=== PATIENT | female | born 2000 | race African-American/Black ===

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

== ENCOUNTER 2020-02-15 19:10 | Emergency (ER) | payer SELFPAY ==
[~2020-02-15] VITALS: Ht 170.2 cm; Wt 70.0 kg
[~2020-02-15 19:10] MED LIST changes: +FAMO-63 PO
[2020-02-15 19:48] LABS: BILIRUBIN,URINE NEGATIVE (NEG); CLARITY,URINE CLOUDY; COLOR,URINE AMBER; NITRITE,URINE POSITIVE (NEG); PH,URINE 6.5 (<5.0-8.0); PROTEIN,URINE 30 mg/dL (NEG-TRACE)
[2020-02-15 19:59] LABS: BACTERIA,URINE MODERATE /HPF (0-FEW); RBC,URINE 0 /HPF (0-2); SQUAMOUS EPITHELIAL CELL,UR MANY /LPF; WBC,URINE >40 /HPF (0-4)
[2020-02-15] MEDS ORDERED: AZITHROMYCIN 250 MG TABLET. PO ONE (20:00)
[2020-02-15] MEDS ORDERED: cefTRIAXone IM 250 MG VIAL IM ONE (20:00)
--- NOTE | 2020-02-15 20:38 | RAD ---
Transvaginal pelvic ultrasound 02/15/2020. Reason for exam: Cervical pain. Vaginal discharge. FINDINGS: Uterus is normal in size and shape, measuring 7.0 x 4.1 x 2.3 cm. Endometrial thickness is normal at 6 mm. No fibroid is seen. Both ovaries are demonstrated and are normal in size. They have internal blood flow. There is a small amount of free fluid adjacent to the right ovary. Note is made of prominent venous structures, especially on the right. IMPRESSION: No identified cause for discharge. There is a small amount of free fluid, which may be physiologic. There are prominent veins in the pelvis. These are nonspecific, but can be seen with pelvic congestion syndrome. Electronically signed by: Cm Bonilla Jr., MD (02/15/2020 8:36 PM) [facility]
[2020-02-15] MEDS ORDERED: METR-34 PO (20:47)
--- NOTE | 2020-02-15 20:48 | PHYS DOC ---
Past Medical History Past Medical History: Other Additional Past Medical Histor: Lupus, Blood clot R lung, R leg diagnosed 06/12 Past Surgical History: No Surgical History Smoking Status: Current Every Day Smoker Alcohol Use: Occasionally General Adult EDM: Chief Complaint: PELVIC PAIN HPI: HPI: Patient is a 20 year old AA female who presents to the emergency department with complaints of abnormal vaginal discharge and pelvic pain for the last week. She denies any dysuria, hematuria, or difficulty voiding. Patient denies any recent unprotected intercourse. She denies any abnormal vaginal bleeding, fever, cough, nausea, vomiting, or diarrhea. She currently rates her pain a 5 out of 10 on the pain scale, she denies any radiation of the pain, she denies any alleviating or exacerbating factors. Review of Systems: Review of Systems: Constitutional: Denies fever or chills. [] GI: Denies abdominal pain, nausea, vomiting, or diarrhea. [] : See HPI Integument: Denies rash. [] Neurologic: Denies headache Psychiatric: Denies depression or anxiety. [] Heart Score: Risk Factors: Risk Factors: DM, Current or recent (<one month) smoker, HTN, HLP, family history of CAD, obesity. Risk Scores: Score 0 - 3: 2.5% MACE over next 6 weeks - Discharge Home Score 4 - 6: 20.3% MACE over next 6 weeks - Admit for Clinical Observation Score 7 - 10: 72.7% MACE over next 6 weeks - Early Invasive Strategies Current Medications: Current Medications Medications (Trade) Dose Ordered Sig/[facility] Start Time Stop Time Status Last Admin Dose Admin Azithromycin (Zithromax) 1,000 mg 1X ONCE 02/15/20 20:00 02/15/20 20:22 DC Ceftriaxone Sodium (Rocephin Im) 250 mg 1X ONCE 02/15/20 20:00 02/15/20 20:22 DC Allergies: Allergies: Allergies Coded Allergies Type Severity Reaction Last Updated Verified No Known Drug Allergies 11/02/19 No Physical Exam: PE: Constitutional: Well developed, well nourished, no acute distress, non-toxic appearance. HENT: Normocephalic, atraumatic, bilateral external ears normal, nose normal. Eyes: PERRLA, EOMI, conjunctiva normal, no discharge. Neck: Normal range of motion, no stridor. Cardiovascular: Heart rate regular rhythm Lungs & Thorax: Respirations even and unlabored, no retractions, no respiratory distress Pelvic Exam: Tree Puller present Yamileth RN Abdomen: Nontender, soft External Genitalia: Normal Skin Speculum: Normal vaginal mucosa, purulent cervical discharge Bimanual: No adnexal masses or tenderness, CMT Skin: Warm, dry, no erythema, no rash. Extremities: No cyanosis, ROM intact, no edema. Neurologic: Alert and oriented X 3, no focal deficits noted. Psychologic: Affect normal, judgement normal, mood normal. Current Patient Data: Labs: Laboratory Tests Test 02/15/20 19:26 02/15/20 19:40 POC Urine HCG, Qualitative Hcg negative (Negative) Urine Collection Type Unknown Urine Color Katerina Urine Clarity Cloudy Urine pH 6.5 (<5.0-8.0) Urine Specific [place] >=1.030 (1.000-1.030) Urine Protein 30 mg/dL (NEG-TRACE) Urine Glucose (UA) Negative mg/dL (NEG) Urine Ketones (Stick) Negative mg/dL (NEG) Urine Blood Negative (NEG) Urine Nitrite Positive (NEG) Urine Bilirubin Negative (NEG) Urine Urobilinogen Dipstick 1.0 mg/dL (0.2 mg/dL) Urine Leukocyte Esterase Moderate (NEG) Urine RBC 0 /HPF (0-2) Urine WBC >40 /HPF (0-4) Urine Squamous Epithelial Cells Many /LPF Urine Bacteria Moderate /HPF (0-FEW) Urine Mucus Mod /LPF Microbiology 02/15/20 Wet Prep - Final, Complete Vital Signs: Vital Signs Date Time Temp Pulse Resp B/P (MAP) Pulse Ox O2 Delivery O2 Flow Rate FiO2 02/15/20 19:43 98.6 100 16 116/58 (77) 99 Room Air 98.6 EKG: EKG: [] Radiology/Procedures: Radiology/Procedures: PROCEDURE: TRANSVAGINAL Transvaginal pelvic ultrasound 02/15/2020. Reason for exam: Cervical pain. Vaginal discharge. FINDINGS: Uterus is normal in size and shape, measuring 7.0 x 4.1 x 2.3 cm. Endometrial thickness is normal at 6 mm. No fibroid is seen. Both ovaries are demonstrated and are normal in size. They have internal blood flow. There is a small amount of free fluid adjacent to the right ovary. Note is made of prominent venous structures, especially on the right. IMPRESSION: No identified cause for discharge. There is a small amount of free fluid, which may be physiologic. There are prominent veins in the pelvis. These are nonspecific, but can be seen with pelvic congestion syndrome. Electronically signed by: Cm Bonilla Jr., MD (02/15/2020 8:36 PM) [facility] [] Course & Med Decision Making: Course & Med Decision Making Pertinent Labs and Imaging studies reviewed. (See chart for details) 20-year-old female presents to the emergency department for evaluation of pelvic pain and irregular vaginal discharge. Work-up included a pelvic exam and pelvic ultrasound. Ultrasound revealed prominent veins in the pelvis most likely due to pelvic congestion syndrome, no identified cause for the discharge, a small amount of free fluid which may be physiologic. Wet mount was concerning for bacterial vaginosis. Patient was given a prescription for Flagyl 500 mg p.o. twice daily x7 days. Pelvic exam was concerning for sexually transmitted infection. Patient was treated prophylactically with 250 mg of IM Rocephin, and 1 g of PO Zithromax. Patient was instructed to avoid having intercourse until the results of gonorrhea and chlamydia testing are available, patient was notified that these results would not be available for 48 hours. If one or both of these tests is positive, patient needs to refrain from intercourse for approximately 1 week following the treatment of any current partners. Patient verbalized an understanding of home care, medications, follow-up, and return to ED instructions and was in agreement with the plan of care. [] Dragon Disclaimer: Dragon Disclaimer: This electronic medical record was generated, in whole or in part, using a voice recognition dictation system. Departure Departure Impression: Primary Impression: Bacterial vaginosis Additional Impressions: Contact with and (suspected) exposure to infections with a predominantly sexual mode of transmission Pelvic pain Disposition: 01 HOME, SELF-CARE Condition: STABLE Referrals: NO PCP (PCP) Patient Instructions: Bacterial Vaginosis, [id number], Pelvic Pain, Female, Twij-[id number], Sexually Transmitted Disease, [id number] Additional Instructions: Fill the prescription and use as directed. Recommend that you go to your local health department for comprehensive sexually transmitted disease testing. You have been treated for a suspected gonorrhea and chlamydia. Avoid having intercourse until the results of gonorrhea and chlamydia testing are available, these results will not be available for 48 hours. If one or both of these tests is positive, you need to refrain from intercourse for approximately 1 week following the treatment of any current partners. Follow-up with your primary care doctor if symptoms persist, return to ER symptoms worsen. Scripts Metronidazole (METRONIDAZOLE) 500 Mg Tablet 1 TAB PO BID for 7 Days, #14 TAB 0 Refills Prov: BONNIE HAYWOOD APRN 02/15/20 Justicifation of Admission Dx: Justifications for Admission: Justification of Admission Dx: N/A BONNIE HAYWOOD APRN Feb 15, 2020 20:48
[2020-02-15 20:54] VITALS: BP 106/55
[2020-02-17 21:08] LABS: GC PROBE Negative (Negative)
== END 2020-02-15 21:02 | disposition home or self-care (01) ==
LOC: ER 19:10
DX: N76.0 Acute vaginitis (principal); B96.89 Other specified bacterial agents as the cause of diseases classified elsewhere; R10.2 Pelvic and perineal pain; Z20.2 Contact with and (suspected) exposure to infections with a predominantly sexual mode of transmission; F17.200 Nicotine dependence, unspecified, uncomplicated
CPT/HCPCS: 76830; 81001; 81025; 87086; 87491; 87591; 96372; 99284; J0696; Q0111

== ENCOUNTER 2020-04-07 23:18 | Emergency (ER) | payer SELFPAY ==
[~2020-04-07] VITALS: Ht 167.6 cm; Wt 62.7 kg
[2020-04-07] MEDS ORDERED: IV NORMAL SALINE 1000ML BAG 1,000 ML IV ONE (23:30)
[2020-04-07] MEDS ORDERED: ONDANSETRON PF 4 MG/2 ML VIAL. IVP ONE (23:30)
[2020-04-07] MEDS ORDERED: ACETAMINOPHEN 500 MG TABLET PO ONE (23:30)
--- NOTE | 2020-04-07 23:48 | PHYS DOC ---
Past Medical History Past Medical History: Other Additional Past Medical Histor: Lupus, Blood clot R lung, R leg diagnosed 06/12 Past Surgical History: No Surgical History Smoking Status: Current Every Day Smoker Alcohol Use: Occasionally General Adult EDM: Chief Complaint: weakness HPI: HPI: Patient is a 20 year old female who arrives via EMS with a chief complaint of weakness. Patient had a COVID-19 exposure 2 weeks ago and then for the last week is felt generalized weakness has had some diarrhea of myalgias and fatigue. Patient has some shortness of breath but denies any cough. Patient is nauseous but has not been vomiting. Patient has a history of pulmonary embolism and sporadically takes her anticoagulants. Review of Systems: Review of Systems: Constitutional: Denies fever or chills. [] Eyes: Denies change in visual acuity. [] HENT: Denies nasal congestion or sore throat. [] Respiratory: Denies cough but has had shortness of breath. [] Cardiovascular: Denies chest pain or edema. [] GI: Denies abdominal pain, but has had nausea and diarrhea : Has had intermittent dysuria Musculoskeletal: Denies back pain or joint pain. [] Complains of myalgias Integument: Denies rash. [] Neurologic: Denies headache, focal weakness or sensory changes. [] Endocrine: Denies polyuria or polydipsia. [] Lymphatic: Denies swollen glands. [] Psychiatric: Denies depression or anxiety. [] Heart Score: Risk Factors: Risk Factors: DM, Current or recent (<one month) smoker, HTN, HLP, family history of CAD, obesity. Risk Scores: Score 0 - 3: 2.5% MACE over next 6 weeks - Discharge Home Score 4 - 6: 20.3% MACE over next 6 weeks - Admit for Clinical Observation Score 7 - 10: 72.7% MACE over next 6 weeks - Early Invasive Strategies Current Medications: Current Medications Sodium Chloride 1,000 ml @ 1,000 mls/hr 1X ONCE IV Last administered on 04/07/20at 23:54; Start 04/07/20 at 23:30; Stop 04/08/20 at 00:29; Status DC Acetaminophen (Tylenol) 1,000 mg 1X ONCE PO Last administered on 04/07/20at 23:40; Start 04/07/20 at 23:30; Stop 04/07/20 at 23:31; Status DC Ondansetron HCl (Zofran) 4 mg 1X ONCE IVP Last administered on 04/07/20at 23:54; Start 04/07/20 at 23:30; Stop 04/07/20 at 23:31; Status DC Potassium Chloride (Klor-Con) 40 meq 1X ONCE PO Last administered on 04/08/20at 02:13; Start 04/08/20 at 01:00; Stop 04/08/20 at 01:01; Status DC Ceftriaxone Sodium (Rocephin) 1 gm 1X ONCE IVP Last administered on 04/08/20at 02:14; Start 04/08/20 at 01:00; Stop 04/08/20 at 01:01; Status DC Iohexol (Omnipaque 350 Mg/ml) 100 ml 1X ONCE IV Last administered on 04/08/20at 02:03; Start 04/08/20 at 01:45; Stop 04/08/20 at 01:46; Status DC Info (CONTRAST GIVEN -- Rx MONITORING) 1 each PRN DAILY PRN MC SEE COMMENTS; Start 04/08/20 at 01:45; Stop 04/10/20 at 01:44 Active Scripts Active Metronidazole 500 Mg Tablet 1 Tab PO BID 7 Days Pepcid (Famotidine) 20 Mg Tablet 20 Mg PO BID Metronidazole 500 Mg Tablet 1 Tab PO BID 7 Days Keflex (Cephalexin) 500 Mg Capsule 1 Cap PO BID 7 Days Pyridium (Phenazopyridine Hcl) 200 Mg Tablet 200 Mg PO Q8HRS PRN Macrobid 100 Mg Capsule (Nitrofurantoin Monohyd/M-Cryst) 100 Mg Capsule 1 Cap PO BID Current Medications Medications (Trade) Dose Ordered Sig/Chung Start Time Stop Time Status Last Admin Dose Admin Acetaminophen (Tylenol) 1,000 mg 1X ONCE 04/07/20 23:30 04/07/20 23:31 DC 04/07/20 23:40 1,000 MG Ondansetron HCl (Zofran) 4 mg 1X ONCE 04/07/20 23:30 04/07/20 23:31 DC Sodium Chloride 1,000 ml @ 1,000 mls/hr 1X ONCE 04/07/20 23:30 04/08/20 00:29 Allergies: Allergies: Allergies Coded Allergies Type Severity Reaction Last Updated Verified No Known Drug Allergies 11/02/19 No Physical Exam: PE: Constitutional: Well developed, well nourished, mild distress HENT: Normocephalic, atraumatic, bilateral external ears normal, no trismus nose normal. [] Eyes: PERRLA, EOMI, conjunctiva normal, no discharge. [] Neck: Normal range of motion, no tenderness, supple, no stridor. [] No meningeal signs Cardiovascular: Tachycardic, peripheral pulses intact, cap refill is brisk Lungs & Thorax: Diminished breath sounds bilaterally Abdomen: Abdomen soft nontender no guarding or rebound no masses no pulsatile masses Skin: Warm, dry, no erythema, no rash. [] Back: No tenderness, no CVA tenderness. [] Extremities: No tenderness, no cyanosis, no clubbing, ROM intact, no edema. [] Neurologic: Alert and oriented X 3, normal motor function, normal sensory function, no focal deficits noted. [] Psychologic: Affect normal, judgement normal, mood normal. [] Current Patient Data: Labs: Laboratory Tests Test 04/07/20 23:43 04/07/20 23:50 04/07/20 23:51 Urine Collection Type Unknown Urine Color Yellow Urine Clarity Clear Urine pH 7.0 Urine Specific Hershey <=1.005 Urine Protein Negative mg/dL Urine Glucose (UA) Negative mg/dL Urine Ketones (Stick) Negative mg/dL Urine Blood Negative Urine Nitrite Negative Urine Bilirubin Negative Urine Urobilinogen Dipstick 0.2 mg/dL Urine Leukocyte Esterase Negative Urine RBC 0 /HPF Urine WBC Rare /HPF Urine Squamous Epithelial Cells Few /LPF Urine Amorphous Sediment Present /HPF Urine Bacteria 0 /HPF White Blood Count 3.6 x10^3/uL Red Blood Count 3.89 x10^6/uL Hemoglobin 11.6 g/dL Hematocrit 32.8 % Mean Corpuscular Volume 84 fL Mean Corpuscular Hemoglobin 30 pg Mean Corpuscular Hemoglobin Concent 36 g/dL Red Cell Distribution Width 13.1 % Platelet Count 197 x10^3/uL Neutrophils (%) (Auto) 72 % Lymphocytes (%) (Auto) 20 % Monocytes (%) (Auto) 8 % Eosinophils (%) (Auto) 0 % Basophils (%) (Auto) 0 % Neutrophils # (Auto) 2.6 x10^3/uL Lymphocytes # (Auto) 0.7 x10^3/uL Monocytes # (Auto) 0.3 x10^3/uL Eosinophils # (Auto) 0.0 x10^3/uL Basophils # (Auto) 0.0 x10^3/uL Prothrombin Time 14.0 SEC Prothromb Time International Ratio 1.1 Activated Partial Thromboplast Time 35 SEC D-Dimer (Carly) 1.63 ug/mlFEU Maternal Serum HCG Beta Subunit 3 mIU/mL Sodium Level 129 mmol/L Potassium Level 3.1 mmol/L Chloride Level 94 mmol/L Carbon Dioxide Level 25 mmol/L Anion Gap 10 Blood Urea Nitrogen 4 mg/dL Creatinine 0.8 mg/dL Estimated GFR (Cockcroft-Gault) 110.7 BUN/Creatinine Ratio 5 Glucose Level 90 mg/dL Lactic Acid Level 2.3 mmol/L Calcium Level 9.1 mg/dL Total Bilirubin 0.3 mg/dL Aspartate Amino Transf (AST/SGOT) 29 U/L Alanine Aminotransferase (ALT/SGPT) 17 U/L Alkaline Phosphatase 59 U/L Lactate Dehydrogenase 331 U/L Creatine Kinase 110 U/L C-Reactive Protein, Quantitative 26.2 mg/L Total Protein 9.1 g/dL Albumin 3.1 g/dL Albumin/Globulin Ratio 0.5 Lipase 98 U/L Bedside Urine HCG, Qualitative Hcg negative Current Medications Medications (Trade) Dose Ordered Sig/Chung Route PRN Reason Start Time Stop Time Status Last Admin Dose Admin Sodium Chloride 1,000 ml @ 1,000 mls/hr 1X ONCE IV 04/07/20 23:30 04/08/20 00:29 DC 04/07/20 23:54 Acetaminophen (Tylenol) 1,000 mg 1X ONCE PO 04/07/20 23:30 04/07/20 23:31 DC 04/07/20 23:40 Ondansetron HCl (Zofran) 4 mg 1X ONCE IVP 04/07/20 23:30 04/07/20 23:31 DC 04/07/20 23:54 Potassium Chloride (Klor-Con) 40 meq 1X ONCE PO 04/08/20 01:00 04/08/20 01:01 DC 04/08/20 02:13 Ceftriaxone Sodium (Rocephin) 1 gm 1X ONCE IVP 04/08/20 01:00 04/08/20 01:01 MI 04/08/20 02:14 Iohexol (Omnipaque 350 Mg/ml) 100 ml 1X ONCE IV 04/08/20 01:45 04/08/20 01:46 DC 04/08/20 02:03 Info (CONTRAST GIVEN -- Rx MONITORING) 1 each PRN DAILY PRN MC SEE COMMENTS 04/08/20 01:45 04/10/20 01:44 Vital Signs: Vital Signs Date Time Temp Pulse Resp B/P (MAP) Pulse Ox O2 Delivery O2 Flow Rate FiO2 04/08/20 02:17 99.1 99.1 EKG: EKG: EKG interpreted by pr sinus tach with a rate of 126 normal axis normal intervals normal ST segments [] Radiology/Procedures: Radiology/Procedures: [][facility] [address] [place] [address] IMAGING REPORT Signed PATIENT: NORMA CARREONCOUNT: [id number] : 2000 LOCATION: ER AGE: 20 SEX: F EXAM STATUS: REG ER ORD. PHYSICIAN: MERI PALMA MD REASON: chest pain, hx of pe, elevated dimer, possible covid PROCEDURE: CT ANGIOGRAPHY CHEST Study: CT CHEST WITH CONTRAST - PULMONARY ANGIOGRAM History: Chest pain, history of PE. Elevated d-dimer. Possible Covid Comparison: Chest radiograph same day Technique: Helical CT of the chest performed after the administration of 90 mL Omnipaque 350 intravenous contrast and timed for angiographic evaluation of the pulmonary arteries per PE protocol. Coronal and sagittal 3D MIP reformations were obtained. One or more of the following individualized dose reduction techniques were utilized for this examination: 1. Automated exposure control 2. Adjustment of the mA and/or kV according to patient size 3. Use of iterative reconstruction technique. Findings: Pulmonary Arteries: Contrast bolus is adequate. There is mild motion artifact. No acute pulmonary embolism. Heart/Systemic Vasculature: The heart is normal in size. No pericardial effusion. Thoracic aorta is normal in caliber. The left vertebral artery originates from the arch. Mediastinum: No lymphadenopathy. Lungs: The lungs are clear. Airways are clear. No pleural effusion. Neck/Axilla/Body Wall: Visualized portion of thyroid gland is normal. No axillary lymphadenopathy. Upper Abdomen: Normal. Bones: No acute osseous abnormality. IMPRESSION: Normal CT of the chest. No acute pulmonary embolism. Electronically signed by: Hattie Bacon MD (04/08/2020 3:19 AM) [id number] DICTATED and SIGNED BY: HATTIE BACON MD DATE: 04/08/[address] [facility] [address] [place] [address] IMAGING REPORT Signed PATIENT: GORDO CARREONUNT: [id number] : 2000 LOCATION: ER AGE: 20 SEX: F EXAM STATUS: REG ER ORD. PHYSICIAN: MERI PALMA MD REASON: covid, fever PROCEDURE: PORTABLE CHEST 1V EXAM: PORTABLE CHEST 1V 04/07/2020 11:25 PM CLINICAL INDICATION: Covid, fever COMPARISON: None TECHNIQUE: AP upright view of the chest FINDINGS: The heart and mediastinum are normal. Lungs are well-expanded and clear. No consolidation, pleural effusion, or pneumothorax. Pulmonary vascularity is normal. The thoracic skeleton is intact. IMPRESSION: Normal chest radiograph. Electronically signed by: Hattie Bacon MD (04/08/2020 2:54 AM) [id number] DICTATED and SIGNED BY: HATTIE BACON MD DATE: 04/08/20 0254 Course & Med Decision Making: Course & Med Decision Making Pertinent Labs and Imaging studies reviewed. (See chart for details) [] 20-year-old female with a history of lupus and blood clots presents with weakness and some shortness of breath. Patient also has symptoms concerning for COVID-19 and she has been swabbed for this. Patient has elevated D-dimer therefore she underwent a CT angiogram which was fortunately negative for pulmonary realism. Patient does have some hyponatremia and hypokalemia which has been corrected with IV fluids and potassium. On reassessment patient's heart rates in the 90s her oxygen level is 97-99% and she is resting comfortably. At this time I do not think there is indication for admission to the hospital. Dragon Disclaimer: Dragon Disclaimer: This electronic medical record was generated, in whole or in part, using a voice recognition dictation system. Departure Departure Impression: Primary Impression: Generalized weakness Additional Impressions: Dyspnea Suspected COVID-19 virus infection Hypokalemia Hyponatremia Disposition: 01 DC HOME SELF CARE/HOMELESS Condition: STABLE Referrals: NO PCP (PCP) Family [facility] [address] [place] [address] [facility] [address] [place] [address] [facility] [address] Patient Instructions: Hypokalemia, Hyponatremia, Viral Syndrome, Weakness Additional Instructions: EMERGENCY DEPARTMENT GENERAL DISCHARGE INSTRUCTIONS THANK YOU for coming to [facility] Emergency Department (ED) today and trusting us with your care. We trust that you had a positive experience in our Emergency Department. If you wish to speak to the department Management you can contact the education department chair at . YOUR FOLLOW UP INSTRUCTIONS ARE FOLLOWS: Do you have a private doctor? If you do not have a private doctor, please ask for a resource list of physicians or clinics that may be able to assist you with follow up care. The Emergency Physician has interpreted your x-rays. The X-ray specialist will also review them. If there is a change in the findings you will be notified in 48 hours when at all possible. A lab test or lab culture may have been done, your results will be reviewed and you will be notified if you need a change in treatment. ADDITIONAL INSTRUCTIONS AND INFORMATION Your care today has been supervised by a physician who is specially trained in emergency care. Many problems require more than one evaluation for a complete diagnosis and treatment. We recommend that you schedule your follow up appointment as recommended to e nsure complete treatment of your illness or injury. If you are unable to obtain follow up care and continue to have a problem, or if your condition worsens we recommend that you return to the ED. We are not able to safely determine your condition over the phone nor are we able to give sound medical advice over the phone. For these safety reasons, if you call for medical advice we will ask you to come to the ED for further evaluation If you have any questions regarding these discharge instructions please call the ED at . SAFETY INFORMATION In the interest of safety, wellness, and injury prevention; we encourage you to wear your seatbelt, if you smoke; quit smoking, and we encourage your family to use protective helmet for bicycling and other sporting events that present an increased risk for head injury. IF YOUR SYMPTOMS WORSEN OR NEW SYMPTOMS DEVELOP, OR YOU HAVE CONCERNS ABOUT YOUR CONDITION; OR IF YOUR CONDITION WORSENS WHILE YOU ARE WAITING FOR YOUR FOLLOW UP APPOINTMENT; EITHER CONTACT YOUR PRIMARY CARE DOCTOR, THE PHYSICIAN WHOSE NAME AND NUMBER YOU WERE GIVEN, OR RETURN TO THE ED IMMEDIATELY. You have been tested for or diagnosed with COVID-19. It is an infection caused by a new type of coronavirus. COVID-19 will cause cold-like or mild flu symptoms in most. It can cause more severe symptoms like problems breathing in some. There is no treatment for COVID-19. The body will clear the infection over time. Self-care will help to ease discomfort. Steps to Take: Self-Care Rest as needed. Healthy habits may help you feel better. Steps include: Choose healthy foods including fruits and vegetables. Drink water throughout the day. Get plenty of sleep each night. If you smoke, try to quit. It may ease breathing. Avoid alcohol. Keep Others Healthy The virus can spread to others. Droplets are released every time you sneeze or cough. The droplets can get into the mouth, nose, or eyes of people near you and lead to infection. To lower the chances of spreading COVID-19 to others: Stay at home until your doctor has said it is safe to leave. If you tested positive this will mean staying isolated until both of the following are true: At least 7 days have passed since the start of illness. You are free of fever for at least 72 hours without the use of medicine. During this time: - Avoid public areas, events, or transportation. Do not return to work or school until your doctor has said it is safe to do so. - Call ahead if you need to go to a medical center. Let them know you may have COVID-19. It will help them guide you where to go. They may also ask you to wear a facemask when you come to the office. - If you call for emergency medical services, let them know you may have COVID- 19. While at home: - Try to avoid close contact with others. Stay about 6 feet away. - If possible, spend most of your time in a separate room from others. - Use a face mask if you will be in close contact with others such as sharing a room or vehicle. - Have someone wipe down common surfaces in the home. Use household clerk typist every day on areas like doorknobs, counters, or sinks. - Cough or sneeze into a tissue. Throw the tissue away right after use. If a tissue is not available, cough or sneeze into your elbow. - Wash your hands often. Wash them after sneezing or coughing. Use soap and water and wash for at least 20 seconds. Alcohol based hand ladle cleaner can be used if soap and water is not available. - Do not prepare food for others. Avoid sharing personal items like forks, spoons, or toothbrushes. - Avoid close contact with pets while you are sick. There is no evidence of the virus passing to pets. This is a safety step until more is known about this virus. Isolation can be frustrating. Social interaction can help. Keep in touch with friends and family through phone and tech options. You can still interact with others in your home, just keep a safe distance of about 6 feet. Follow-up: Your doctors office will check in with you to see if there are any changes in your health. You may be asked to keep track of symptoms to share with them. They will also let you know when you are clear to be in public again. Problems to Look Out For: Contact your doctor if your recovery is not going as you expect. Get emergency care if you have problems such as: - Trouble breathing - Nonstop chest pain or pressure - Changes in awareness, confusion, or problems waking - Lips or face have bluish color - Worsening of symptoms If you think you have an emergency, call for emergency medical services right away. As [facility] Ondansetron (ONDANSETRON ODT) 4 Mg Tab.rapdis 1 TAB PO PRN Q6-8HRS PRN for NAUSEA, #15 TAB Prov: MERI PALMA MD 04/08/20 MERI PALMA MD Apr 07, 2020 23:48
[2020-04-07 23:53] LABS: BILIRUBIN,URINE NEGATIVE (NEG); CLARITY,URINE CLEAR; COLOR,URINE YELLOW; NITRITE,URINE NEGATIVE (NEG); PROTEIN,URINE NEGATIVE (NEG-TRACE); UROBILINOGEN,URINE 0.2 mg/dL (0.2 mg/dL)
[2020-04-08 00:02] LABS: BASO % 0 % (0-3); EOS % 0 % (0-3); HEMATOCRIT 32.8 % (36.0-47.0); HEMOGLOBIN 11.6 g/dL (12.0-15.5); LYMPH # 0.7 x10^3/uL (1.0-4.8); LYMPH % 20 % (24-48); MEAN CORPUSCULAR HEMOGLOBIN 30 pg (25-35); MEAN CORPUSCULAR HGB CONC 36 g/dL (31-37); MEAN CORPUSCULAR VOLUME 84 fL (79-100); MONO # 0.3 x10^3/uL (0.0-1.1); MONO % 8 % (0-9); NEUT # 2.6 x10^3/uL (1.8-7.7); NEUT % 72 % (31-73); PLATELET COUNT 197 x10^3/uL (140-400); RED BLOOD COUNT 3.89 x10^6/uL (3.50-5.40); RED CELL DISTRIBUTION WIDTH 13.1 % (11.5-14.5); WHITE BLOOD COUNT 3.6 x10^3/uL (4.0-11.0)
[2020-04-08 00:07] LABS: AMORPHOUS SEDIMENT,UR PRESENT /HPF; BACTERIA,URINE 0 /HPF (0-FEW); RBC,URINE 0 /HPF (0-2); WBC,URINE RARE /HPF (0-4)
[2020-04-08 00:11] LABS: CALCIUM 9.1 mg/dL (8.5-10.1); CREATININE 0.8 mg/dL (0.6-1.0); GFR 110.7; POTASSIUM 3.1 mmol/L (3.5-5.1)
[2020-04-08 00:16] LABS: C-REACTIVE PROTEIN 26.2 mg/L (0-3.3)
[2020-04-08 00:19] LABS: ALBUMIN 3.1 g/dL (3.4-5.0); ALBUMIN/GLOBULIN RATIO 0.5 (1.0-1.7); TOTAL BILIRUBIN 0.3 mg/dL (0.2-1.0); TOTAL PROTEIN 9.1 g/dL (6.4-8.2)
[2020-04-08] MEDS ORDERED: POTASSIUM CHLORIDE 20 MEQ TABLET.ER. PO ONE (01:00)
[2020-04-08] MEDS ORDERED: cefTRIAXone IV Push 1 GM VIAL. IVP ONE (01:00)
[2020-04-08] MEDS ORDERED: CONTRAST GIVEN. MC PRN (01:45)
[2020-04-08] MEDS ORDERED: IOHEXOL 350 MG/ML 100 ML VIAL. IV ONE (01:45)
--- NOTE | 2020-04-08 02:57 | RAD ---
EXAM: PORTABLE CHEST 1V 04/07/2020 11:25 PM CLINICAL INDICATION: Covid, fever COMPARISON: None TECHNIQUE: AP upright view of the chest FINDINGS: The heart and mediastinum are normal. Lungs are well-expanded and clear. No consolidation, pleural effusion, or pneumothorax. Pulmonary vascularity is normal. The thoracic skeleton is intact. IMPRESSION: Normal chest radiograph. Electronically signed by: Hattie Bacon MD (04/08/2020 2:54 AM) [id number]
--- NOTE | 2020-04-08 03:22 | RAD ---
Study: CT CHEST WITH CONTRAST - PULMONARY ANGIOGRAM History: Chest pain, history of PE. Elevated d-dimer. Possible Covid Comparison: Chest radiograph same day Technique: Helical CT of the chest performed after the administration of 90 mL Omnipaque 350 intravenous contrast and timed for angiographic evaluation of the pulmonary arteries per PE protocol. Coronal and sagittal 3D MIP reformations were obtained. One or more of the following individualized dose reduction techniques were utilized for this examination: 1. Automated exposure control 2. Adjustment of the mA and/or kV according to patient size 3. Use of iterative reconstruction technique. Findings: Pulmonary Arteries: Contrast bolus is adequate. There is mild motion artifact. No acute pulmonary embolism. Heart/Systemic Vasculature: The heart is normal in size. No pericardial effusion. Thoracic aorta is normal in caliber. The left vertebral artery originates from the arch. Mediastinum: No lymphadenopathy. Lungs: The lungs are clear. Airways are clear. No pleural effusion. Neck/Axilla/Body Wall: Visualized portion of thyroid gland is normal. No axillary lymphadenopathy. Upper Abdomen: Normal. Bones: No acute osseous abnormality. IMPRESSION: Normal CT of the chest. No acute pulmonary embolism. Electronically signed by: Hattie Bacon MD (04/08/2020 3:19 AM) [id number]
[2020-04-08 03:42] VITALS: BP 104/61
[2020-04-08] MEDS ORDERED: ONDA4TAB12 PO (03:44)
--- NOTE | 2020-04-12 10:21 | NUR ---
Attempted to call test results. No answer. No means to leave a voicemail.
== END 2020-04-08 05:38 | disposition home or self-care (01) ==
LOC: ER 23:18
DX: R53.1 Weakness (principal); Z20.828 Contact with and (suspected) exposure to other viral communicable diseases; R06.00 Dyspnea, unspecified; R19.7 Diarrhea, unspecified; R53.83 Other fatigue; F17.200 Nicotine dependence, unspecified, uncomplicated
CPT/HCPCS: 36415; 71045; 71275; 80053; 81001; 81025; 82550; 83605; 83615; 83690; 84702; 85025; 85379; 85610; 85730; 86140; 87040; 96361; 96374; 96375; 99285; C9803; J0696; J2405; J7030; Q9967; U0003

== ENCOUNTER 2020-04-13 18:09 | Emergency (ER) | payer SELFPAY ==
[~2020-04-13] VITALS: Ht 167.6 cm; Wt 65.0 kg
[~2020-04-13 18:09] MED LIST changes: +ONDA4TAB12 PO
[2020-04-13 18:22] VITALS: BP 114/64
--- NOTE | 2020-04-13 18:55 | PHYS DOC ---
Past Medical History Past Medical History: Other Additional Past Medical Histor: Lupus, Blood clot R lung, R leg diagnosed 06/12 Past Surgical History: No Surgical History Smoking Status: Current Every Day Smoker Alcohol Use: Occasionally Drug Use: None General Adult EDM: Chief Complaint: HEADACHE HPI: HPI: Patient is a 20-year-old female with a history of lupus who presents to the ED with headache for the past 3 days. She states headache with gradual throbbing and localized throughout her head. Patient states that she not regularly get headaches and took some Tylenol without any relief. Associated photophobia, diarrhea and nausea. Denies any shortness of breath,cough, or chest pain. Severity rated at a 10/10. Reports a negative Covid test ~1 week ago. Pt has a history of a blood clot 1 year ago in her leg when she was first diagnosed with Lupus, states she was taking Xarelto but stopped taking it 2 weeks ago. Denies . Denies trauma. Review of Systems: Review of Systems: Constitutional: Denies fever or chills Eyes: Denies redness or eye pain HENT: Denies nasal congestion or sore throat Respiratory: Denies cough or shortness of breath Cardiovascular: Denies chest pain or palpitations GI: Reports nausea and diarrhea; denies abdominal pain or vomiting : Denies dysuria or hematuria Musculoskeletal: Denies back pain or joint pain Integument: Denies rash or skin lesions Neurologic: Reports headache; denies focal weakness or sensory changes Complete systems were reviewed and found to be within normal limits, except as documented in this note. Current Medications: Current Medications Medications (Trade) Dose Ordered Sig/[facility] Start Time Stop Time Status Last Admin Dose Admin Acetaminophen/ Butalbital/ Caffeine (Fioricet) 1 tab 1X ONCE 04/13/20 19:00 04/13/20 19:01 Dexamethasone (Decadron) 10 mg 1X ONCE 04/13/20 19:00 04/13/20 19:01 Allergies: Allergies: Allergies Coded Allergies Type Severity Reaction Last Updated Verified No Known Drug Allergies 11/02/19 No Physical Exam: PE: Constitutional: Well developed, well nourished, no acute distress, non-toxic appearance HENT: Normocephalic, atraumatic Eyes: PERRL, EOMI, conjunctiva normal, no discharge, photophobia Neck: Normal range of motion, no tenderness, supple, no meningeal signs Lungs & Thorax: No respiratory distress, equal chest rise and fall Abdomen: Soft, no tenderness Skin: Warm, dry, no erythema, no rash Extremities: No tenderness, ROM intact, no edema Neurologic: Alert and oriented X 3, normal motor function, normal sensory function, no focal deficits noted, CN II-XII intact, Normal finger to nose testing, strength 5/5 UE and LE bilaterally Psychologic: Affect normal, judgment normal Current Patient Data: Vital Signs: Vital Signs Date Time Temp Pulse Resp B/P (MAP) Pulse Ox O2 Delivery O2 Flow Rate FiO2 04/13/20 18:22 98.9 97 18 114/64 (81) 99 Room Air 98.9 EKG: EKG: [] Radiology/Procedures: Radiology/Procedures: [] Course & Med Decision Making: Course & Med Decision Making Pt is a 20-year-old female who presents with headache. No focal neurologic deficits. Neuro exam normal. Afebrile. No meningeal signs. Denies trauma. Patient is given Zofran, Fioricet, dexamethasone, and Ketorolac for symptom control. Patient stable for discharge with outpatient follow-up with PCP/Neurology. Neurology referral provided. Discussed findings and plan with patient, who acknowledges understanding and agreement. Garrett Disclaimer: Garrett Disclaimer: This electronic medical record was generated, in whole or in part, using a voice recognition dictation system. Departure Departure Impression: Primary Impression: Headache Qualified Codes: R51.9 - Headache, unspecified Disposition: 01 DC HOME SELF CARE/HOMELESS Condition: STABLE Referrals: NO PCP (PCP) BEVERLY SAMANIEGO MD Patient Instructions: Headache, FAQs Additional Instructions: May also take over the counter Ibuprofen for pain or discomfort.. Increase fluid hydration. Scripts Ondansetron (ONDANSETRON ODT) 4 Mg Tab.rapdis 1 TAB PO PRN Q6-8HRS PRN for NAUSEA, #16 TAB Prov: ANGEL JASON DO 04/13/20 Butalb/Acetaminophen/Caffeine ([id number] [id number]) 1 Each Tablet 1 EACH PO Q6HRS PRN for HEADACHE, #10 TAB Prov: ANGEL JASON DO 04/13/20 ANGEL JASON DO Apr 13, 2020 18:55
[2020-04-13] MEDS ORDERED: BUTALB/APAP/CAFEIN 50/325/40MG TABLET. PO ONE (19:00)
[2020-04-13] MEDS ORDERED: KETOROLAC 30 MG/ML VIAL. IM ONE (19:00)
[2020-04-13] MEDS ORDERED: ONDA4TAB12 PO (19:00)
[2020-04-13] MEDS ORDERED: BUTA1TAB23 PO (19:00)
[2020-04-13] MEDS ORDERED: DEXAMETHASONE 4 MG TABLET PO ONE (19:00)
[2020-04-13] MEDS ORDERED: ONDANSETRON ODT 4 MG TAB.RAPDIS. PO ONE (19:00)
== END 2020-04-13 19:39 | disposition home or self-care (01) ==
LOC: ER 18:09
DX: R51.9 Headache, unspecified (principal); F17.200 Nicotine dependence, unspecified, uncomplicated
CPT/HCPCS: 96372; 99284; J1885

== ENCOUNTER 2020-05-03 08:09 | Emergency (ER) | payer SELFPAY ==
[~2020-05-03] VITALS: Ht 167.6 cm; Wt 69.1 kg
[~2020-05-03 08:09] MED LIST changes: +BUTA1TAB23 PO
[2020-05-03 08:54] LABS: BILIRUBIN,URINE NEGATIVE (NEG); CLARITY,URINE CLEAR; COLOR,URINE YELLOW; NITRITE,URINE NEGATIVE (NEG); PH,URINE 6.5 (<5.0-8.0); PROTEIN,URINE NEGATIVE (NEG-TRACE); UROBILINOGEN,URINE 0.2 mg/dL (0.2 mg/dL)
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
[2020-05-03 09:07] LABS: BACTERIA,URINE MODERATE /HPF (0-FEW); RBC,URINE OCC /HPF (0-2)
[2020-05-03 10:30] VITALS: BP 117/66
[2020-05-06 02:13] LABS: GC PROBE Negative (Negative)
== END 2020-05-03 11:09 | disposition home or self-care (01) ==
LOC: ER 08:09
DX: R10.2 Pelvic and perineal pain (principal); R30.0 Dysuria; F17.210 Nicotine dependence, cigarettes, uncomplicated
CPT/HCPCS: 81001; 81025; 87086; 87491; 87591; 99284; Q0111

== ENCOUNTER 2020-08-23 01:11 | Emergency (ER) | payer SELFPAY ==
[~2020-08-23] VITALS: Ht 167.6 cm; Wt 65.9 kg
[2020-08-23 01:14] VITALS: BP 117/65
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
[2020-08-23 01:59] LABS: BILIRUBIN,URINE NEGATIVE (NEG); CLARITY,URINE CLEAR; COLOR,URINE YELLOW; NITRITE,URINE POSITIVE (NEG); PH,URINE 6.5 (<5.0-8.0); PROTEIN,URINE 30 mg/dL (NEG-TRACE); UROBILINOGEN,URINE 0.2 mg/dL (0.2 mg/dL)
[2020-08-23 02:07] LABS: BACTERIA,URINE MANY /HPF (0-FEW); RBC,URINE 0 /HPF (0-2)
[2020-08-23] MEDS ORDERED: NITR100C62 PO (02:17)
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
[2020-08-23] MEDS ORDERED: DIPH,PERTUSS(ACELL),TET VAC/PF 0.5 ML SYRINGE. VAX IM ONE (04:00)
== END 2020-08-23 03:31 | disposition home or self-care (01) ==
LOC: ER 01:11
DX: S01.01XA Laceration without foreign body of scalp, initial encounter (principal); F17.200 Nicotine dependence, unspecified, uncomplicated; Y08.89XA Assault by other specified means, initial encounter; Y93.89 Activity, other specified; Y92.89 Other specified places as the place of occurrence of the external cause; Y99.8 Other external cause status
CPT/HCPCS: 12004; 70450; 81001; 81025; 87077; 87086; 87186; 99284